=== PATIENT | female | born 1970 | race Hispanic/Latino ===

== ENCOUNTER 2018-02-01 21:55 | Outpatient (CLI) | payer BC ==
--- NOTE | 2018-02-01 23:00 | XRay Report ---
FINAL REPORT PROCEDURE: XR ANKLE 3+V LT TECHNIQUE: LEFT ankle radiographs, AP, lateral, and oblique views. CPT 56515 HISTORY: left ankle pain COMPARISON: No prior studies are available for comparison. FINDINGS: Fracture (s) and/or Dislocation(s): There is osseous remodeling of the distal fibula, this is most likely sequelae from previous trauma. No definitive acute fracture or dislocation is seen. Well corticated osseous density off the medial malleolus consistent with prior trauma.. Alignment: Normal. Joint space(s): Mild narrowing of the ankle mortise globally. Soft tissues: Mild soft tissue swelling diffusely. Bone mineralization: Normal. Foreign bodies: None. Calcaneal spurring: Small inferior spur. IMPRESSION: There is some osseous remodeling of the distal fibula most consistent with previous trauma. No acute fracture dislocation. Mild arthritis. Moderate diffuse soft tissue swelling..
== END 2018-02-01 21:56 | disposition home or self-care (01) ==
LOC: XRAY 21:55
PROVIDERS: ATTEND Emergency Medicine
DX: M19.072 Primary osteoarthritis, left ankle and foot (principal); M77.32 Calcaneal spur, left foot; J45.909 Unspecified asthma, uncomplicated; E66.01 Morbid (severe) obesity due to excess calories; K21.9 Gastro-esophageal reflux disease without esophagitis; Z86.018 Personal history of other benign neoplasm; Z68.42 Body mass index [BMI] 45.0-49.9, adult; Z90.710 Acquired absence of both cervix and uterus; Z90.49 Acquired absence of other specified parts of digestive tract

== ENCOUNTER 2019-05-30 02:28 | Emergency (ER) | payer BC ==
[2019-05-30] MEDS ORDERED: TORADOL IM STA (02:44)
[2019-05-30] MEDS ORDERED: MARCAINE 0.25% INFILTRATI ONE (02:44)
--- NOTE | 2019-05-30 02:45 | Emergency Department Report ---
ED Lower Extremity HPI - General Chief Complaint: Extremity Injury, Lower Stated Complaint: LT FOOT ANKLE PAIN SWELLING Time Seen by Provider: 05/30/19 02:35 Source: patient, RN notes reviewed Mode of arrival: Ambulatory Limitations: No Limitations - History of Present Illness Initial Comments: This is a pleasant 49-year-old female who is not known to this provider previously in the medical capacity. Her past medical history includes obesity, asthma, reported history of DVT 3, IVC filter, atrial myxoma Patient follows up with our local orthopedic physician, Dr. Ashvin Pedersen. She occasionally gets cortisone injections for joint pain. She presents to the ER today with complaint of nontraumatic left anterior tibial pain, and left medial malleolus discomfort, over the past couple weeks. No relief with [id number] medication. The pain is sharp and throbbing, and starts around the left lateral malleolus, and radiates up the anterior tibial region. There are no other injuries. There are no other complaints. In the emergency room, patient was given Toradol intramuscular, and had a trigger point injection performed with 0.25% bupivacaine, 5 mL, which markedly improved her symptoms. The patient now endorses significant improvement in symptoms, and readiness for discharge. She did not endorse any additional complaints. MD Complaint: other -: week(s) Injury: Leg: Left Type of Injury: other (there is no mechanism of injury that the patient can recall) Severity: moderate Improves With: rest, other Worsens With: weight bearing, movement, palpation Associated Symptoms: ambulatory - Related Data Home Medications Medication Instructions Recorded Confirmed Last Taken Fluticasone/Salmeterol [Advair 2 puff IH BID 08/11/13 03/30/16 08/11/13 13:00 Diskus 500-50 mcg] Previous Rx's Medication Instructions Recorded Last Taken Type DOXYCYCLINE Hyclate [Vibramycin 100 mg PO BID #20 capsule 08/20/13 Unknown Rx CAP] HYDROcodone/APAP 5-325 [[place] 1 each PO Q6H PRN #30 tablet 08/20/13 Unknown Rx 5-325 mg TAB] Ondansetron [Zofran TAB] 4 mg PO Q8HR PRN #15 tablet 08/20/13 Unknown Rx EPINEPHrine (NF) [Epipen (Nf)] 0.3 mg IM ONCE PRN #5 syringekit 06/07/16 Unknown Rx predniSONE [Deltasone] 20 mg PO QDAY #3 tab 06/07/16 Unknown Rx Oxycodone HCl/Acetaminophen 1 each PO Q6HR PRN #20 tablet 12/30/18 Unknown Rx [Percocet 10/325 mg] Allergies Allergy/AdvReac Type Severity Reaction Status Date / Time amoxicillin trihydrate Allergy Swelling Verified 08/11/13 15:11 [From Augmentin] potassium clavulanate Allergy Swelling Verified 08/11/13 15:11 [From Augmentin] ED Review of Systems ROS: Stated complaint: LT FOOT ANKLE PAIN SWELLING Other details as noted in HPI Constitutional: denies: fever Eyes: denies: eye discharge ENT: denies: congestion Respiratory: denies: wheezing Cardiovascular: denies: syncope Gastrointestinal: denies: abdominal pain, vomiting Musculoskeletal: arthralgia, myalgia Skin: denies: lesions Neurological: denies: weakness ED Past Medical Hx - Past Medical History Hx Heart Attack/AMI: No Hx Congestive Heart Failure: No Hx Diabetes: No Hx Deep Vein Thrombosis: Yes Hx Asthma: Yes Hx COPD: No Hx HIV: No - Surgical History Hx Open Heart Surgery: Yes (Myxoma tumor) Hx Cholecystectomy: Yes Additional Surgical History: hysterectomy. left ankle. IVC filter - Social History Smoking Status: Never Smoker Substance Use Type: None - Medications Home Medications: Home Medications Medication Instructions Recorded Confirmed Last Taken Type Fluticasone/Salmeterol [Advair 2 puff IH BID 08/11/13 03/30/16 08/11/13 13:00 History Diskus 500-50 mcg] DOXYCYCLINE Hyclate [Vibramycin 100 mg PO BID #20 capsule 08/20/13 03/30/16 Unknown Rx CAP] HYDROcodone/APAP 5-325 [[place] 1 each PO Q6H PRN #30 tablet 08/20/13 03/30/16 Unknown Rx 5-325 mg TAB] Ondansetron [Zofran TAB] 4 mg PO Q8HR PRN #15 tablet 08/20/13 03/30/16 Unknown Rx EPINEPHrine (NF) [Epipen (Nf)] 0.3 mg IM ONCE PRN #5 syringekit 06/07/16 Unknown Rx predniSONE [Deltasone] 20 mg PO QDAY #3 tab 06/07/16 Unknown Rx Oxycodone HCl/Acetaminophen 1 each PO Q6HR PRN #20 tablet 12/30/18 Unknown Rx [Percocet 10/325 mg] ED Physical Exam - General Limitations: No Limitations General appearance: alert, in no apparent distress, obese - Head Head exam: Present: atraumatic, normocephalic - Eye Eye exam: Present: normal appearance, EOMI. Absent: nystagmus - ENT ENT exam: Present: normal exam, normal orophraynx, mucous membranes moist, normal external ear exam - Neck Neck exam: Present: normal inspection, full ROM. Absent: tenderness, meningismus - Respiratory Respiratory exam: Present: normal lung sounds bilaterally. Absent: respiratory distress - Cardiovascular Cardiovascular Exam: Present: regular rate, normal rhythm, normal heart sounds. Absent: bradycardia, tachycardia, irregular rhythm, systolic murmur, diastolic murmur, rubs, gallop - GI/Abdominal GI/Abdominal exam: Present: soft. Absent: distended, tenderness, guarding, rebound, rigid, pulsatile mass - Extremities Exam Extremities exam: Present: normal inspection, full ROM, tenderness (there is reproducible trigger point tenderness noted on the left lateral superior anterior malleoli region, and stuart tibial joint.), other (there is no redness, pus or streaking. The compartments are soft.2+ pulses noted in the bilateral upper, lower extremities. Compartments soft. No long bony tenderness. The pelvis is stable.) - Back Exam Back exam: Present: normal inspection, full ROM. Absent: tenderness, CVA tenderness (R), CVA tenderness (L), paraspinal tenderness, vertebral tenderness - Neurological Exam Neurological exam: Present: alert, normal gait, other (Extraocular movements intact. Tongue midline. No facial droop. Facial sensation intact to light touch in the V1, V2, V3 distribution bilaterally. 5 and 5 strength in 4 extremities.. Sensation is intact to light touch in 4 extremities.) - Psychiatric Psychiatric exam: Present: normal affect, normal mood - Skin Skin exam: Present: warm, dry, intact, normal color. Absent: rash - Procedure Description Procedures done: Patient provided written consent for trigger point injection. The left lateral anterior malleolar region and anterior tibial region were cleansed with typical aseptic technique. 5 mL of 0.25% bupivacaine were gently infiltrated at a trigger point injection site, with a 26-gauge needle. After the injection, the patient endorsed improvement in symptoms. There were no obvious complications, and the patient tolerated the procedure well. ED Lower Extremity MDM - Medical Decision Making Differential diagnosis, including but not limited to: Tendinitis, sprain, strain Assessment and plan: 49-year-old female with reproducible anterior left lateral anterior malleolus tenderness, reproducible anterior tibial tenderness, with no redness, pus or streaking. There is no palpable cord and there is negative Homans sign. The patient's exam is not consistent with DVT or compartment syndrome. She felt significant improvement after supportive care. She will follow-up with her orthopedist. She does not appear to have an emergent medical condition at this time. The patient may be discharged to follow-up. Critical care attestation.: If time is entered above; I have spent that time in minutes in the direct care of this critically ill patient, excluding procedure time. ED Disposition Clinical Impression: Left leg pain Disposition: DC-01 TO HOME OR SELFCARE Is pt being admited?: No Does the pt Need Aspirin: No Condition: Stable Additional Instructions: Rest, avoid heavy lifting, and avoid strenuous physical activities. Alternate heat packs and ice packs, and patient may take acetaminophen, 650 mg, by mouth, every 4-6 hours as needed for pain, alternating with Motrin, 600 mg, by mouth, with food, every 6 hours as needed for pain. Patient may consider alternative complementary therapy, such as massage, acupuncture. Follow up with her primary care doctor or orthopedist within the next 2 weeks. Return to the emergency room right away with new, worsening or different symptoms, or symptoms not present on the initial emergency room evaluation. Referrals: ASHVIN PEDERSEN MD [Staff Physician] - 7-10 days
[2019-05-30 04:08] VITALS: BP 119/74
== END 2019-05-30 03:55 | disposition home or self-care (01) ==
LOC: ED 02:28
DX: M25.572 Pain in left ankle and joints of left foot (principal); J45.909 Unspecified asthma, uncomplicated; Z90.49 Acquired absence of other specified parts of digestive tract; Z90.710 Acquired absence of both cervix and uterus; Z88.1 Allergy status to other antibiotic agents; Z88.8 Allergy status to other drugs, medicaments and biological substances; Z79.899 Other long term (current) drug therapy; Z86.718 Personal history of other venous thrombosis and embolism
CPT/HCPCS: 96372; 99282; J1885

== ENCOUNTER 2019-06-29 07:13 | Outpatient (CLI) | payer BC ==
--- NOTE | 2019-06-29 09:05 | Magnetic Resonance Report ---
MRI LEFT ANKLE WITHOUT CONTRAST INDICATION / CLINICAL INFORMATION: M25.572 PAIN IN LEFT ANKLE AND JOINTS OF LEFT FOOT. TECHNIQUE: Multiplanar, multisequence MR images were obtained. COMPARISON: Radiographs dated 02/01/18 FINDINGS: ACHILLES TENDON: No significant abnormality. PLANTAR FASCIA: Thickening of the plantar fascia at the calcaneal insertion without acute abnormality . POSTERIOR TIBIAL / FLEXOR TENDONS: No significant abnormality. PERONEAL TENDONS: No significant abnormality. EXTENSOR TENDONS: No significant abnormality. TALOFIBULAR LIGAMENTS: Thickening and intermediate signal likely related to old ligamentous injury. TIBIOFIBULAR LIGAMENTS: Thickening and intermediate signal likely related to old injury. DISTAL TIBIOFIBULAR SYNDESMOSIS: No significant abnormality. CALCANEOFIBULAR LIGAMENT: No significant abnormality. DELTOID LIGAMENT: Thickening and intermediate signal likely related to old ligamentous injury. SPRING LIGAMENT: No significant abnormality. TIBIOTALAR ARTICULAR CARTILAGE: Moderate chondrosis and degenerative arthrosis of the tibiotalar melissa culation. Subchondral cystic change in the tibial plafond and talar dome. TIBIOTALAR JOINT SPACE: Normal joint effusion with mild synovitis. No definite intra-articular bodies . SUBTALAR JOINTS: No significant abnormality. SINUS TARSI: No significant abnormality. TARSAL TUNNEL: There is a ganglion cyst measuring 10 x 7 x 11 mm at the superior aspect of the tarsal tunnel with mild mass effect on the posterior tibial neurovascular bundle. This cyst is best seen on axial PD image 18 and coronal PD image 12. BONES: Subchondral edema at the tibiotalar articulation. No other significant bone marrow edema. No f racture. Previous bimalleolar internal fixation status post hardware removal. SUBCUTANEOUS SOFT TISSUES: Mild to moderate circumferential subcutaneous soft tissue edema. ADDITIONAL FINDINGS: None. IMPRESSION: 1. 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 2. Old bimalleolar fracture status post internal fixation with hardware removal. Old ligamentous inju ry. 3. Ganglion cyst at the superior aspect of the tarsal tunnel with mild mass effect on the posterior t ibial neurovascular bundle. Clinical correlation for symptoms in the distribution of the posterior ti bial neurovascular bundle is recommended. Signer Name: Kiera Grant MD Signed: 06/29/2019 9:00 AM Workstation Name: [id number]
== END 2019-06-29 07:14 | disposition home or self-care (01) ==
LOC: MRI 07:13
PROVIDERS: ATTEND Orthopaedic Surgery
DX: M19.172 Post-traumatic osteoarthritis, left ankle and foot (principal); M67.472 Ganglion, left ankle and foot
CPT/HCPCS: 73721

== ENCOUNTER 2020-12-08 19:45 | Emergency (ER) | payer BC ==
[2020-12-08 20:18] LABS: Basophils % (Auto) 0.4 % (0.0-1.8); Eosinophils # (Auto) 0.1 K/mm3 (0.0-0.4); Eosinophils % (Auto) 1.2 % (0.0-4.3); Hematocrit 45.2 % (30.3-42.9); Hemoglobin 15.4 gm/dl (10.1-14.3); Lymphocytes # (Auto) 2.1 K/mm3 (1.2-5.4); Lymphocytes % (Auto) 30.6 % (13.4-35.0); Mean Corpuscular HGB Conc 34 % (30-34); Mean Corpuscular Volume 95 fl (79-97); Monocytes # (Auto) 0.7 K/mm3 (0.0-0.8); Monocytes % (Auto) 10.8 % (0.0-7.3); Platelet Count 207 K/mm3 (140-440); Red Blood Count 4.75 M/mm3 (3.65-5.03); Red Cell Distribution Width 14.2 % (13.2-15.2)
[2020-12-08 20:52] LABS: Alanine Aminotransferase 46 units/L (7-56); Albumin 4.4 g/dL (3.9-5); BUN/Creatinine Ratio 11; Blood Urea Nitrogen 10 mg/dL (7-17); Calcium 9.1 mg/dL (8.4-10.2); Hemolysis Index 12
--- NOTE | 2020-12-08 21:03 | Cat Scan Report ---
CT head/brain wo con INDICATION / CLINICAL INFORMATION: 50 years Female; head injury with LOC. TECHNIQUE: Routine CT head without contrast. All CT scans at this location are performed using CT dos e reduction for ALARA by means of automated exposure control. COMPARISON: None. FINDINGS: BRAIN / INTRACRANIAL CONTENTS: No acute hemorrhage, mass effect, midline shift, hydrocephalus, or acu te, large territorial infarct. No signs of significant atrophy or chronic infarct. No significant whi te matter abnormality seen. CRANIOCERVICAL JUNCTION: Tonsillar ectopia seen without significant mass effect on the cervicomedulla ry junction. ORBITS: No significant abnormality of visualized orbits. SINUSES / MASTOIDS: Visualized paranasal sinuses and mastoid air cells are essentially clear. ADDITIONAL FINDINGS: None. IMPRESSION: 1. No focal mass, hemorrhage, hydrocephalus, or acute, large territorial infarct. Signer Name: Steven Walker MD, III Signed: 12/08/2020 8:59 PM Workstation Name: [id number]
--- NOTE | 2020-12-08 22:31 | Emergency Department Report ---
ED Syncope HPI - General Stated Complaint: HEADACHE,FALL,DIZZINESS Time Seen by Provider: 12/08/20 19:57 - History of Present Illness Initial Comments: Patient is a 50-year-old female who is presenting status post syncopal episode and head injury 2 days ago. Patient states she was in the shower and started feeling some headache on the right side. States she was dizzy at the time as well. Patient states she then lost consciousness and when she awoke she was lying half and half out of the. Patient is continued to have posterior headache and some pressure in the right side of her head. States mild dizziness but no nausea or ataxic gait. Patient states she just feels off at this time. - Related Data Allergies/Adverse Reactions: Allergies amoxicillin trihydrate [From Augmentin] Allergy (Verified 08/11/13 15:11) Swelling potassium clavulanate [From Augmentin] Allergy (Verified 08/11/13 15:11) Swelling Home Medications: Ambulatory Orders Fluticasone/Salmeterol [Advair Diskus 500-50 mcg] 2 puff IH BID 08/11/13 DOXYCYCLINE Hyclate [Vibramycin CAP] 100 mg PO BID #20 capsule 08/20/13 HYDROcodone/APAP 5-325 [[place] 5-325 mg TAB] 1 each PO Q6H PRN #30 tablet 08/20/13 Ondansetron [Zofran TAB] 4 mg PO Q8HR PRN #15 tablet 08/20/13 EPINEPHrine (NF) [Epipen (Nf)] 0.3 mg IM ONCE PRN #5 syringekit 06/07/16 predniSONE [Deltasone] 20 mg PO QDAY #3 tab 06/07/16 Oxycodone HCl/Acetaminophen [Percocet 10/325 mg] 1 each PO Q6HR PRN #20 tablet 12/30/18 Ketorolac [Toradol] 10 mg PO Q6H PRN #12 tablet 12/08/20 Meclizine [Antivert] 25 mg PO TID PRN #10 tablet 12/08/20 ED Review of Systems ROS: Stated complaint: HEADACHE,FALL,DIZZINESS Other details as noted in HPI Comment: All other systems reviewed and negative ED Past Medical Hx - Past Medical History Hx Heart Attack/AMI: No Hx Congestive Heart Failure: No Hx Diabetes: No Hx Deep Vein Thrombosis: Yes Hx Asthma: Yes Hx COPD: No Hx HIV: No - Surgical History Hx Open Heart Surgery: Yes (Myxoma tumor) Hx Cholecystectomy: Yes Additional Surgical History: hysterectomy. left ankle. IVC filter - Social History Smoking Status: Never Smoker Substance Use Type: None - Medications Home Medications: Home Medications Medication Instructions Recorded Confirmed Last Taken Type Fluticasone/Salmeterol [Advair 2 puff IH BID 08/11/13 03/30/16 08/11/13 13:00 History Diskus 500-50 mcg] DOXYCYCLINE Hyclate [Vibramycin 100 mg PO BID #20 capsule 08/20/13 03/30/16 Unknown Rx CAP] HYDROcodone/APAP 5-325 [[place] 1 each PO Q6H PRN #30 tablet 08/20/13 03/30/16 Unknown Rx 5-325 mg TAB] Ondansetron [Zofran TAB] 4 mg PO Q8HR PRN #15 tablet 08/20/13 03/30/16 Unknown Rx EPINEPHrine (NF) [Epipen (Nf)] 0.3 mg IM ONCE PRN #5 syringekit 06/07/16 Unknown Rx predniSONE [Deltasone] 20 mg PO QDAY #3 tab 06/07/16 Unknown Rx Oxycodone HCl/Acetaminophen 1 each PO Q6HR PRN #20 tablet 12/30/18 Unknown Rx [Percocet 10/325 mg] Ketorolac [Toradol] 10 mg PO Q6H PRN #12 tablet 12/08/20 Unknown Rx Meclizine [Antivert] 25 mg PO TID PRN #10 tablet 12/08/20 Unknown Rx ED Physical Exam - General General appearance: alert, in no apparent distress - Head Head exam: Present: atraumatic, normocephalic - Eye Eye exam: Present: normal appearance, PERRL, EOMI - ENT ENT exam: Present: mucous membranes moist - Neck Neck exam: Present: normal inspection - Respiratory Respiratory exam: Present: normal lung sounds bilaterally. Absent: respiratory distress, wheezes, rales, rhonchi - Cardiovascular Cardiovascular Exam: Present: regular rate, normal rhythm, normal heart sounds. Absent: systolic murmur, diastolic murmur, rubs, gallop - GI/Abdominal GI/Abdominal exam: Present: soft, normal bowel sounds. Absent: distended, tenderness, guarding, rebound - Extremities Exam Extremities exam: Present: normal inspection - Back Exam Back exam: Present: normal inspection - Neurological Exam Neurological exam: Present: alert, oriented X3 - Psychiatric Psychiatric exam: Present: normal affect, normal mood - Skin Skin exam: Present: warm, dry, intact, normal color. Absent: rash ED Medical Decision Making - Lab Data Result diagrams: 12/08/20 20:02 12/08/20 20:02 Lab Results 12/08/20 12/08/20 Range/Units 20:02 20:02 WBC 6.8 (4.5-11.0) K/mm3 RBC 4.75 (3.65-5.03) M/mm3 Hgb 15.4 H (10.1-14.3) gm/dl Hct 45.2 H (30.3-42.9) % MCV 95 (79-97) fl MCH 33 H (28-32) pg MCHC 34 (30-34) % RDW 14.2 (13.2-15.2) % Plt Count 207 (140-440) K/mm3 Lymph % (Auto) 30.6 (13.4-35.0) % [place] % (Auto) 10.8 H (0.0-7.3) % Eos % (Auto) 1.2 (0.0-4.3) % Baso % (Auto) 0.4 (0.0-1.8) % Lymph # (Auto) 2.1 (1.2-5.4) K/mm3 [place] # (Auto) 0.7 (0.0-0.8) K/mm3 Eos # (Auto) 0.1 (0.0-0.4) K/mm3 Baso # (Auto) 0.0 (0.0-0.1) K/mm3 Seg Neutrophils % 57.0 (40.0-70.0) % Seg Neutrophils # 3.9 (1.8-7.7) K/mm3 Sodium 142 (137-145) mmol/L Potassium 3.7 (3.6-5.0) mmol/L Chloride 102.5 (98-107) mmol/L Carbon Dioxide 30 (22-30) mmol/L Anion Gap 13 mmol/L BUN 10 (7-17) mg/dL Creatinine 0.9 (0.6-1.2) mg/dL Estimated GFR > 60 ml/min BUN/Creatinine Ratio 11 % Glucose 102 H (65-100) mg/dL Calcium 9.1 (8.4-10.2) mg/dL Total Bilirubin 0.30 (0.1-1.2) mg/dL AST 33 (5-40) units/L ALT 46 (7-56) units/L Alkaline Phosphatase 85 (35-129) units/L Total Protein 7.3 (6.3-8.2) g/dL Albumin 4.4 (3.9-5) g/dL Albumin/Globulin Ratio 1.5 % - Radiology Data [facility] [address] [place] [address] Cat Scan Report Signed Patient: DESIRAE CLEMENTS MR#: [id number] : 1970 Acct:[id number] Age/Sex: 50 / F ADM Date: 12/08/20 Loc: ED Attending Dr: Ordering Physician: DYLLAN WILLOUGHBY MD Date of Service: 12/08/20 Procedure(s): CT head/brain wo con Accession Number(s): [id number] cc: DYLLAN WILLOUGHBY MD CT head/brain wo con INDICATION / CLINICAL INFORMATION: 50 years Female; head injury with LOC. TECHNIQUE: Routine CT head without contrast. All CT scans at this location are performed using CT dose reduction for ALARA by means of automated exposure control. COMPARISON: None. FINDINGS: BRAIN / INTRACRANIAL CONTENTS: No acute hemorrhage, mass effect, midline shift, hydrocephalus, or acute, large territorial infarct. No signs of significant atrophy or chronic infarct. No significant white matter abnormality seen. CRANIOCERVICAL JUNCTION: Tonsillar ectopia seen without significant mass effect on the cervicomedullary junction. ORBITS: No significant abnormality of visualized orbits. SINUSES / MASTOIDS: Visualized paranasal sinuses and mastoid air cells are essentially clear. ADDITIONAL FINDINGS: None. IMPRESSION: 1. No focal mass, hemorrhage, hydrocephalus, or acute, large territorial infarct. Signer Name: Steven Walker MD, III Signed: 12/08/2020 8:59 PM Workstation Name: [id number] - Medical Decision Making Patient CT was negative for any acute abnormality. Because of the patient's syncopal episode was not found at this time however it has been 2 days. Patient likely with a postconcussive syndrome with the persistent headaches since but the original right-sided headache cause has not been determined at this time. Patient will be discharged home with medication for symptomatic relief and follow-up with neurology. Critical care attestation.: If time is entered above; I have spent that time in minutes in the direct care of this critically ill patient, excluding procedure time. ED Disposition Clinical Impression: Headache, Episode of syncope, Post-concussion headache Disposition: TO HOME OR SELFCARE Is pt being admited?: No Does the pt Need Aspirin: No Condition: Stable Instructions: Syncope (ED), Post-Concussion Syndrome Referrals: DOMINGA FOWLER MD [Referring] - 3-5 Days Time of Disposition: 22:33
== END 2020-12-09 00:38 | disposition home or self-care (01) ==
LOC: ED 19:45
DX: S06.0X9A Concussion with loss of consciousness of unspecified duration, initial encounter (principal); R51.9 Headache, unspecified; R55 Syncope and collapse; J45.909 Unspecified asthma, uncomplicated; Z90.49 Acquired absence of other specified parts of digestive tract; Z98.890 Other specified postprocedural states; Z88.1 Allergy status to other antibiotic agents; Z88.8 Allergy status to other drugs, medicaments and biological substances; X58.XXXA Exposure to other specified factors, initial encounter; Y93.89 Activity, other specified; Y92.89 Other specified places as the place of occurrence of the external cause; Y99.8 Other external cause status
CPT/HCPCS: 36415; 70450; 80053; 85025; 99283